=== PATIENT | male | born 1990 | race African-American/Black ===

== ENCOUNTER 2024-05-24 19:25 | Emergency (ER) | payer OTHER ==
[~2024-05-24] VITALS: Ht 193 cm; Wt 104.8 kg
== END 2024-05-24 19:41 | disposition home or self-care (01) ==
LOC: ER 19:25
DX: L98.9 Disorder of the skin and subcutaneous tissue, unspecified (principal)
CPT/HCPCS: 99283

== ENCOUNTER 2024-07-08 23:41 | Emergency (ER) | payer OTHER ==
[~2024-07-08] VITALS: Ht 195.6 cm; Wt 86.2 kg
[2024-07-09] MEDS ORDERED: Ondansetron HCl 2 MG / ML 2ML Vial IV ONE ×2 (00:15→00:20)
[2024-07-09 00:34] LABS: Hematocrit 48.7 % (37.0-53.0); Hemoglobin 15.8 g/dL (13.5-17.5); Mean Corpuscular HGB 28.8 pg (26.0-34.0); Mean Corpuscular HGB Conc 32.4 g/dL (31.5-36.5); Mean Corpuscular Volume 89 fL (80-100); Mean Platelet Volume 10.1 fL (9.1-12.4); Platelet Count 292 K/mm3 (150-400); RDW Coefficient Variation 13.5 % (11.7-14.2); RDW Standard Deviation 44.3 fL (35.1-46.3); Red Blood Cell Count 5.48 M/mm3 (4.30-5.90); White Blood Cell Count 17.88 K/mm3 (4.00-11.30)
[2024-07-09 00:46] LABS: Albumin, Blood 4.3 g/dL (3.4-5.0); Albumin/Globulin Ratio 0.7 (0.8-1.8); Bilirubin, Total 0.3 mg/dL (0.1-1.0); Calcium, Blood 10.6 mg/dL (8.5-10.1); Creatinine, Blood 1.5 mg/dL (0.60-1.20); Globulin, Blood 6.2 g/dL (2.2-4.0); Potassium, Blood 3.2 mmol/L (3.5-5.5); Total Protein, Blood 10.5 g/dL (6.4-8.2)
[2024-07-09 00:58] LABS: BAND PERCENT MAN 10 % (0-8); BASOPHILS PERCENT MAN 0 % (0-2); EOSINOPHILS PERCENT MAN 0 % (0-6); LYMPHOCYTES % ATYPICAL MANUAL 3 % (0-0); LYMPHOCYTES ABSOLUTE MAN 6.61 K/mm3 (0.84-5.20); LYMPHOCYTES PERCENT MAN 34 % (21-46); MONOCYTES ABSOLUTE MAN 0.53 K/mm3 (0.16-1.47); MONOCYTES PERCENT MAN 3 % (4-13); NEUTROPHILS ABSOLUTE MAN 10.72 K/mm3 (1.96-9.15); SEG NEUTROPHILS PERCENT MAN 50 % (41-73); TOTAL CELLS COUNTED 100
[2024-07-09] MEDS ORDERED: Potassium Chl 20MEQ/Water100ML 100 ML IV SCH (01:05)
[2024-07-09] MEDS ORDERED: Lactated Ringer's 1,000 ML IV SCH (01:05)
[2024-07-09 01:27] LABS: Influenza A, PCR NEGATIVE (NEGATIVE); Influenza B, PCR NEGATIVE (NEGATIVE); Resp Syncytial Virus, PCR NEGATIVE (NEGATIVE); SARS-Cov-2 (COVID-19) PCR, MMC NEGATIVE (NEGATIVE)
[2024-07-09] MEDS ORDERED: ONDA4ODT MM (02:21)
== END 2024-07-09 05:56 | disposition home or self-care (01) ==
LOC: ER 23:41
PROVIDERS: Emergency Medicine
DX: R11.2 Nausea with vomiting, unspecified (principal); F12.90 Cannabis use, unspecified, uncomplicated
CPT/HCPCS: 0241U; 80053; 83690; 85025; 93005; 93010; 96365; 96366; 96375; 99284-25; J2405; J3480; J7120

== ENCOUNTER → 2024-08-23 | Outpatient (CLI) | payer OTHER ==
[~2024-08-23] MED LIST: ONDA4ODT MM
[2024-08-23 16:13] LABS: Adenovirus F 40/41 Not Detected (NOT DETECT); Astrovirus Not Detected (NOT DETECT); Campylobacter Sp Not Detected (NOT DETECT); Cryptosporidium Not Detected (NOT DETECT); Cyclospora Cayetanensis Not Detected (NOT DETECT); E. Coli O157 Not Detected (NOT DETECT); Entamoeba Histolytica Not Detected (NOT DETECT); Enteroaggregative E. coli-EAEC Not Detected (NOT DETECT); Enteropathogenic E. coli-EPEC Not Detected (NOT DETECT); Enterotoxigenic E. coli-ETEC Not Detected (NOT DETECT); Giardia Lamblia Not Detected (NOT DETECT); Norovirus GI/GII Not Detected (NOT DETECT); Plesiomonas Shigelloides Not Detected (NOT DETECT); Rotavirus A Not Detected (NOT DETECT); Salmonella Sp Not Detected (NOT DETECT); Sapovirus Not Detected (NOT DETECT); Shiga Toxin-prod E. coli-STEC Not Detected (NOT DETECT); Shigella/Enteroin E. coli-EIEC Not Detected (NOT DETECT); Vibrio Cholerae Not Detected (NOT DETECT); Vibrio Sp Not Detected (NOT DETECT); Yersinia Enterocolitica Not Detected (NOT DETECT)
[2024-08-28 07:52] LABS: CALPROTECTIN,FECAL 866 ug/g (<=49)
== END | disposition home or self-care (01) ==
LOC: LAB 08-21 15:00
PROVIDERS: Student in an Organized Health Care Education/Training Program
DX: K52.9 Noninfective gastroenteritis and colitis, unspecified (principal)
CPT/HCPCS: 83993; 87507

== ENCOUNTER → 2024-09-01 | Outpatient (CLI) | payer OTHER | END | disposition home or self-care (01) | LOC: LAB 18:30 → LAB SHORT 18:30 | DX: K52.9 Noninfective gastroenteritis and colitis, unspecified (principal); R79.82 Elevated C-reactive protein (CRP); R10.9 Unspecified abdominal pain; G89.29 Other chronic pain | CPT/HCPCS: 87015; 87045; 87046; 87205; 87899 ==

== ENCOUNTER → 2025-09-03 | Outpatient (CLI) | payer OTHER ==
[2025-09-04 13:57] LABS: Campylobacter Sp Not Detected (NOT DETECT); E. Coli O157 Not Detected (NOT DETECT); Enteroaggregative E. coli-EAEC Not Detected (NOT DETECT); Enteropathogenic E. coli-EPEC Not Detected (NOT DETECT); Enterotoxigenic E. coli-ETEC Not Detected (NOT DETECT); Salmonella Sp Not Detected (NOT DETECT); Shiga Toxin-prod E. coli-STEC Not Detected (NOT DETECT); Shigella/Enteroin E. coli-EIEC Not Detected (NOT DETECT); Vibrio Sp Not Detected (NOT DETECT)
[2025-09-11 14:14] LABS: CALPROTECTIN,FECAL 1100 ug/g (<=49)
== END | disposition home or self-care (01) ==
LOC: LAB 22:00 → LAB SHORT 22:00
PROVIDERS: Physician Assistant Medical
DX: K50.119 Crohn's disease of large intestine with unspecified complications (principal)
CPT/HCPCS: 83993; 87507

== ENCOUNTER 2025-09-28 08:19 | Emergency (ER) | payer OTHER ==
[~2025-09-28] VITALS: Ht 193 cm; Wt 113.4 kg
[2025-09-28] MEDS ORDERED: Ondansetron HCl 2 MG / ML 2ML Vial IV ONE (08:25)
[2025-09-28 08:50] LABS: BASOPHILS ABSOLUTE AUTO 0.02 K/mm3 (0.00-0.23); BASOPHILS PERCENT AUTO 0 % (0-2); EOSINOPHILS ABSOLUTE AUTO 0.02 K/mm3 (0.00-0.68); EOSINOPHILS PERCENT AUTO 0 % (0-6); Hematocrit 48.4 % (37.0-53.0); Hemoglobin 16.5 g/dL (13.5-17.5); IMMATURE GRAN ABSOLUTE AUTO 0.02 K/mm3 (0.00-0.10); IMMATURE GRAN PERCENT AUTO 0 % (0-1); LYMPHOCYTES ABSOLUTE AUTO 1.94 K/mm3 (0.84-5.20); LYMPHOCYTES PERCENT AUTO 25 % (21-46); MONOCYTES ABSOLUTE AUTO 0.80 K/mm3 (0.16-1.47); MONOCYTES PERCENT AUTO 10 % (4-13); Mean Corpuscular HGB Conc 34.1 g/dL (31.5-36.5); Mean Corpuscular Volume 89 fL (80-100); NEUTROPHILS ABSOLUTE AUTO 4.98 K/mm3 (1.96-9.15); NEUTROPHILS PERCENT AUTO 64 % (41-73); NRBC ABSOLUTE 0.00 K/mm3 (0.00-0.02); NRBC Auto 0.0 /100 WBC (0.0-0.2); Platelet Count 256 K/mm3 (150-400); RDW Coefficient Variation 15.1 % (11.7-14.2); RDW Standard Deviation 49.4 fL (35.1-46.3)
[2025-09-28 09:10] LABS: Influenza A, PCR NEGATIVE (NEGATIVE); Influenza B, PCR NEGATIVE (NEGATIVE); Resp Syncytial Virus, PCR NEGATIVE (NEGATIVE); SARS-Cov-2 (COVID-19) PCR, MMC NEGATIVE (NEGATIVE)
[2025-09-28 09:15] LABS: Alanine Aminotransfer (ALT/SGP 70.0 U/L (12-78); Albumin, Blood 4.0 g/dL (3.4-5.0); Albumin/Globulin Ratio 0.8 (0.8-1.8); Anion Gap 10.0 mmol/L (3-11); Aspartate Aminotrans (AST/SGOT 28.0 U/L (12-37); Bilirubin, Total 0.9 mg/dL (0.1-1.0); Blood Urea Nitrogen 20.0 mg/dL (8-24); CO2, Blood 24.0 mmol/L (21-32); Calcium, Blood 9.6 mg/dL (8.5-10.1); Chloride, Blood 104.0 mmol/L (98-108); Creatinine, Blood 1.17 mg/dL (0.60-1.20); Globulin, Blood 4.8 g/dL (2.2-4.0); Glucose, Blood 124.0 mg/dL (70-99); Potassium, Blood 3.9 mmol/L (3.5-5.5); Sodium, Blood 134.0 mmol/L (136-145); Total Protein, Blood 8.8 g/dL (6.4-8.2)
[2025-09-28 09:19] LABS: Magnesium, Blood 2.3 mg/dL (1.6-2.4); Phosphorus, Blood 3.5 mg/dL (2.5-4.9)
[2025-09-28] MEDS ORDERED: PRED1 PO (09:45)
[2025-09-28] MEDS ORDERED: OXYC5 PO (09:45)
[2025-09-28] MEDS ORDERED: ONDA4ODT MM (10:57)
== END 2025-09-28 11:19 | disposition home or self-care (01) ==
LOC: ER 08:19
PROVIDERS: Physician Assistant
DX: K50.90 Crohn's disease, unspecified, without complications (principal); Z59.89 Other problems related to housing and economic circumstances; Z79.899 Other long term (current) drug therapy
CPT/HCPCS: 80053; 83735; 84100; 85025; 87637; 96361; 96374; 99284-25; J2405; J7120

== ENCOUNTER 2025-10-14 11:47 | Emergency (ER) | payer OTHER ==
[~2025-10-14] VITALS: Ht 193 cm; Wt 111.1 kg
[~2025-10-14 11:47] MED LIST changes: +OXYC5 PO; +PRED1 PO
[2025-10-14] MEDS ORDERED: CYCL10 PO (13:04)
== END 2025-10-14 13:06 | disposition home or self-care (01) ==
LOC: ER 11:47
DX: S19.9XXA Unspecified injury of neck, initial encounter (principal); F17.200 Nicotine dependence, unspecified, uncomplicated; Z79.52 Long term (current) use of systemic steroids; Z59.89 Other problems related to housing and economic circumstances; V43.52XA Car driver injured in collision with other type car in traffic accident, initial encounter
CPT/HCPCS: 72125; 99284-25